=== PATIENT | female | born 1965 | race Hispanic/Latino ===

== ENCOUNTER 2018-09-15 08:53 | Outpatient (CLI) | payer OTHER ==
--- NOTE | 2018-09-15 15:34 | MMO ---
Bilateral MAMMO Bilat Screen DDI+DIMITRY. CLINICAL HISTORY: Patient is 53 years old and is seen for screening. The patient has no family history of breast cancer. The patient has no personal history of cancer. VIEWS: The views performed were: bilateral craniocaudal with tomosynthesis and bilateral mediolateral oblique with tomosynthesis. FILMS COMPARED: The present examination has been compared to prior imaging studies performed at [facility] on 02/11/2016 and 02/27/2017. MAMMOGRAM FINDINGS: There are scattered fibroglandular densities. There is a focal asymmetry seen in the lower-outer region of the right breast. IMPRESSION: FOCAL ASYMMETRY IN THE RIGHT BREAST REQUIRES ADDITIONAL EVALUATION. SPOT COMPRESSION IS RECOMMENDED. AN ULTRASOUND EXAM IS RECOMMENDED IF NEEDED. ADDITIONAL IMAGING. THE RESULTS OF THIS EXAM WERE SENT TO THE PATIENT. ACR BI-RADS Category 0 - Incomplete: Need additional imaging evaluation. [facility] will notify the patient of the need for additional imaging services. MAMMOGRAPHY NOTE: 1. A negative mammogram report should not delay a biopsy if a dominant of clinically suspicious mass is present. 2. Approximately 10% to 15% of breast cancers are not detected by mammography. 3. Adenosis and dense breasts may obscure an underlying neoplasm.
== END 2018-09-15 08:54 | disposition home or self-care (01) ==
LOC: BICMAMMO 08:53
PROVIDERS: ATTEND Family Medicine
DX: Z12.31 Encounter for screening mammogram for malignant neoplasm of breast (principal); N64.89 Other specified disorders of breast
CPT/HCPCS: 77063; 77067

== ENCOUNTER 2019-10-03 08:17 | Outpatient (CLI) | payer OTHER ==
--- NOTE | 2019-10-03 09:02 | MMO ---
Bilateral MAMMO Bilat Diag DDI+DIMITRY. CLINICAL HISTORY: Patient is 54 years old and is seen for diagnostic exam. The patient has no family history of breast cancer. The patient has no personal history of cancer. VIEWS: The views performed were: bilateral craniocaudal with tomosynthesis; bilateral mediolateral oblique with tomosynthesis; and bilateral mediolateral with tomosynthesis. FILMS COMPARED: The present examination has been compared to prior imaging studies performed at [facility] on 02/27/2017, 09/15/2018 and 10/03/2019. This study has been interpreted with the assistance of computer-aided detection. MAMMOGRAM FINDINGS: There are scattered fibroglandular densities. Cluster of cysts seen on ultrasound at 3 oclock corresponding to the asymmetric density. See ultrasound report. In the left breast, there are no suspicious masses, calcifications or areas of architectural distortion. IMPRESSION: FINDING IN THE RIGHT BREAST IS PROBABLY BENIGN. FOLLOW-UP IN 6 MONTHS IS RECOMMENDED. THE RESULTS OF THIS EXAM WERE SENT TO THE PATIENT. ACR BI-RADS Category 3 - Probably benign finding - short interval follow-up suggested. [facility] will notify the patient of the need for additional imaging services. MAMMOGRAPHY NOTE: 1. A negative mammogram report should not delay a biopsy if a dominant of clinically suspicious mass is present. 2. Approximately 10% to 15% of breast cancers are not detected by mammography. 3. Adenosis and dense breasts may obscure an underlying neoplasm. Reported by: IVETT FONTAINE MD Electonically Signed: [id number]
--- NOTE | 2019-10-03 09:31 | ULT ---
ULTRASOUND RIGHT BREAST: INDICATION: Ultrasound right breast performed to assess an area of asymmetric density in the inner right breast. FINDINGS: There is a small cluster of cysts at 3 o'clock with overall measurement of approximately 1.3 cm. Rec ommend followup ultrasound and mammogram in 6 months to confirm stability. IMPRESSION: BIRADS 3, probably benign. Recommend followup right breast mammogram and ultrasound in 6 months.
== END 2019-10-03 08:18 | disposition home or self-care (01) ==
LOC: BICMAMMO 08:17
PROVIDERS: ATTEND Family Medicine
DX: R92.8 Other abnormal and inconclusive findings on diagnostic imaging of breast (principal)
CPT/HCPCS: 77066; G0279

== ENCOUNTER 2020-05-08 12:50 | Outpatient (CLI) | payer OTHER ==
--- NOTE | 2020-05-08 14:26 | MMO ---
Right Breast MAMMO Unilat Diag DDI RT+DIMITRY. CLINICAL HISTORY: Patient is 54 years old and is seen for diagnostic exam. The patient has no family history of breast cancer. The patient has no personal history of cancer. VIEWS: The views performed were: right craniocaudal with tomosynthesis; right mediolateral oblique with tomosynthesis; and right mediolateral with tomosynthesis. FILMS COMPARED: The present examination has been compared to prior imaging studies performed at [facility] on 09/15/2018, 10/03/2019 and 05/08/2020. This study has been interpreted with the assistance of computer-aided detection. MAMMOGRAM FINDINGS: There are scattered fibroglandular densities. A cluster of cysts is again seen in the region of focal asymmetry in the right breast. IMPRESSION: FINDING IN THE RIGHT BREAST IS PROBABLY BENIGN. FOLLOW-UP IN 6 MONTHS IS RECOMMENDED. THE RESULTS OF THIS EXAM WERE SENT TO THE PATIENT. ACR BI-RADS Category 3 - Probably benign finding - short interval follow-up suggested. [facility] will notify the patient of the need for additional imaging services. MAMMOGRAPHY NOTE: 1. A negative mammogram report should not delay a biopsy if a dominant of clinically suspicious mass is present. 2. Approximately 10% to 15% of breast cancers are not detected by mammography. 3. Adenosis and dense breasts may obscure an underlying neoplasm. Reported by: URIAH SHUKLA MD Electonically Signed: [id number]
--- NOTE | 2020-05-08 15:17 | ULT ---
RIGHT BREAST ULTRASOUND: Date: 05/08/2020 HISTORY: Six month follow-up. FINDINGS: Comparison made with ultrasound of 10/03/2019. Correlation made with mammogram of today and 0. Sonographic evaluation of the 3 o'clock position of the right breast redemonstrates a cluster of cyst s measuring about 1.5 cm. IMPRESSION: BI-RADS Category 3 - Probably benign. Follow-up ultrasound along with bilateral screening mammograms is recommended in 6 months. The facility will notify patient of need for additional imaging services. POS: OFF
== END 2020-05-08 12:51 | disposition home or self-care (01) ==
LOC: BICMAMMO 12:50
PROVIDERS: ATTEND Nurse Practitioner Family
DX: R92.8 Other abnormal and inconclusive findings on diagnostic imaging of breast (principal)
CPT/HCPCS: G0279

== ENCOUNTER 2020-08-30 06:33 | Emergency (ER) | payer OTHER ==
[2020-08-30] MEDS ORDERED: Nitroglycerin 50 MG/250 ML BOT 250 ML ONE (06:44)
[2020-08-30] MEDS ORDERED: Lorazepam 2 MG/ML VIAL ONE (06:53)
[2020-08-30 07:06] LABS: Hemoglobin 12.1 g/dL (12.0-16.0); Mean Corpuscular HGB CONC 34.9 g/dL (32.0-36.0); Mean Corpuscular Volume 94.5 fL (78.0-98.0); Mean Platelet Volume 8.3 fL (7.4-10.4); Platelet Count 285 thou/uL (130-400); Red Blood Cell (RBC) Count 3.66 mill/uL (4.20-5.40); White Blood Cell (WBC) Count 15.8 thou/uL (4.8-10.8)
[2020-08-30 07:11] LABS: Actual Bicarbonate (HCO3a) 19.9 mEq/L (22-28); Analyzer IN Cardio ER; Base Excess (BEa) -2.6 mEq/L (-2.0 to +3.0); CO2 Tension 27.8 mmHg (35.0-45.0); Calcium, Ionized (arterial) 1.15 mmol/L (1.12-1.30); Carboxyhemoglobin (COHb) 0.3 gm% (0.0-3.0); Hemoglobin (Hb) 11.8 g/dL (12.0-16.0); O2 Tension (PaO2), arterial 69.7 mmHg (80.0-100.0); Potassium - ABG Lab 3.33 mmol/L (3.70-5.30); pH, Arterial 7.47 (7.35-7.45)
[2020-08-30 07:12] LABS: Puncture Site RRA
[2020-08-30] MEDS ORDERED: Ketamine 50 MG/ML (10ML VIAL) ONE (07:22)
[2020-08-30 07:28] LABS: ALT (SGPT) 17 U/L (8-55); AST (SGOT) 33 U/L (5-34); Alkaline Phosphatase 98 U/L (40-110); Anion Gap 21 mmol/L (10-20); BUN (Urea Nitrogen) 17 mg/dL (9.8-20.1); Bilirubin, Total 1.1 mg/dL (0.2-1.2); Calc. Creatinine Clearance 0 mL/min (70-130); Calcium 9.9 mg/dL (7.8-10.44); Carbon Dioxide 20 mmol/L (22-29); Chloride 97 mmol/L (98-107); Globulin 4.5 g/dL (2.4-3.5); Glucose 143 mg/dL (70-105); Potassium 3.3 mmol/L (3.5-5.1); Protein, Total 8.5 g/dL (6.0-8.3); Sodium 135 mmol/L (136-145)
[2020-08-30] MEDS ORDERED: Azithromycin 500 MG VIAL ONE (07:29)
[2020-08-30] MEDS ORDERED: cefTRIAXone\\ROCEPHIN 2 GM VIAL ONE (07:29)
--- NOTE | 2020-08-30 07:46 | RAD ---
Portable frontal chest radiograph: 08/30/2020 COMPARISON: 09/24/2018 HISTORY: Shortness of breath, difficulty breathing FINDINGS: There is extensive new interstitial and alveolar opacity within the bilateral lung parenchy ma with a perihilar/bibasilar predominance, left greater than right. No pneumothorax is evident. There is no large volume pleural effusion. Heart and mediastinal contours appear grossly unremarkable . IMPRESSION: Extensive bilateral interstitial and alveolar opacity, left greater than right. Findings suggest a nonspecific atypical infectious pneumonitis, such as Covid 19. Aspiration or a degree of pulmonary edema cannot be excluded.
[2020-08-30] MEDS ORDERED: Enoxaparin Sodium 100 MG/ML SYRINGE ONE (07:55)
[2020-08-30 08:02] LABS: Band 16 % (5-11); Lymphocytes 20 % (21-51); MDiff Complete? YES; Monocytes 2 % (0-10); Neutrophil 62 % (42-75); Platelet Morphology Comment Appears Adequate; RBC Morphology Normal
--- NOTE | 2020-08-30 08:14 | PDOC.HHP ---
Hospitalist HPI Respiratory distress History of Present Illness: 55-year-old female with past medical history of hypertension who presented to emergency room with worsening of shortness of breath, patient has symptoms for last 4 days, she was diagnosed with COVID-19 August 26, her symptoms started 2 days prior to testing,, she was feeling low-grade fever, dry cough and increasing shortness of breath, When patient arrived to emergency room she was hypoxic, she was saturating 56% on room air, she was hypotensive with blood pressure 201/110, she was anxious, she was tachycardic and tachypneic, she was not able to provide any history, initially she kept on nonrebreather but subsequently she required BiPAP, patient was also given anxiety medicine and subsequently started on nitro drip for elevated blood pressure, After BiPAP and anxiety medicine patient had improvement in her blood pressure as well as respiratory rate, she had clinical improvement and subsequently we decided to keep this patient in hospital. On admission EKG showed sinus tachycardia with a right bundle branch block pattern, patient also had a chest x-ray which was showing diffuse patchy infiltrate. In the emergency room patient received Lovenox 1 mg/kg empirically, she was also given antibiotics. ED Course: In emergency room patient is given Lovenox 1 mg/kg, Rocephin 2 g, azithromycin 500 mg, ketamine 0.1 mg/kg, lorazepam 1 mg IV push, nitroglycerin drip was also started VITAL SIGNS [facility] Aug 30, 2020 06:35 TRACIE Dodd Jordan BP: 177/105, Pulse: 135, Resp: 40, Temp: 99.1 (Oral), O2 sat: 50 on (Room Air), Time: 08/30/2020 06:35. VITAL SIGNS [facility] Aug 30, 2020 06:57 TRACIE Andujar Cory BP: 167/136, Pulse: 133, Resp: 42, Temp: 99.0 (Axillary), Pain: 0, O2 sat: 99 on (Bipap), Time: 08/30/2020 06:57. VITAL SIGNS [facility] Aug 30, 2020 06:39 TRACIE Andujar Cory BP: 189/147, MAP: 161, Pulse: 144, Resp: 44, O2 sat: 56 on (Room Air), Time: 08/30/2020 06:39. VITAL SIGNS [facility] Aug 30, 2020 06:42 Authement, RN, Yunier BP: 201/110, MAP: 140, Pulse: 133, Resp: 40, Pain: 0, O2 sat: 84 on (Non Rebreather), Time: 08/30/2020 06:42. VITAL SIGNS [facility] Aug 30, 2020 06:45 Authement, RN, Yunier BP: 189/113, MAP: 138, Pulse: 132, Resp: 40, Pain: 0, O2 sat: 83 on (Non Rebreather), Time: 08/30/2020 06:45. VITAL SIGNS [facility] Aug 30, 2020 07:05 Authement, RN, Yunier BP: 163/110, MAP: 127, Pulse: 135, Resp: 54, Pain: 0, O2 sat: 97 on (Bipap), Time: 08/30/2020 07:05. VITAL SIGNS [facility] Aug 30, 2020 07:21 Authement, RN, Yunier BP: 153/102, MAP: 119, Pulse: 128, Resp: 51, O2 sat: 95 on (Bipap), Time: 08/30/2020 07:21 Allergies/Adverse Reactions: Allergy/AdvReac Type Severity Reaction Status Date / Time Penicillins Allergy Verified 08/30/20 08:13 Comments: CURRENT HOME MEDICATIONS albuterol sulfate inhalation VIAL, NEBULIZER (EA) : Strength - 2.5 mg/0.5 mL : INHALATION Patient Dose: 1 units Nebulize every 4 hours prn. aspirin oral TABLET : Strength - 325 mg : ORAL Patient Dose: 1 tab(s) Oral once a day. azithromycin oral TABLET : Strength - 250 mg : ORAL Patient Dose: 1 tab(s) Oral once a day. cyclobenzaprine TABLET : Strength - 10 mg : ORAL Patient Dose: 10 mg Oral 3 times a day. losartan TABLET : Strength - 100 mg : ORAL Patient Dose: 100 mg Oral once a day. meloxicam TABLET : Strength - 15 mg : ORAL Patient Dose: 1 tab(s) Oral once a day. Past History: Past medical history Hypertension Past surgical history Tubal ligation Past psychiatric history Reviewed and negative Social history Patient is , lives at home, no history of tobacco alcohol or illicit drug abuse Family history No strong family history of premature coronary artery disease stroke or cancer Hospitalist HPI ROS Constitutional: reports: fever, weakness, malaise. denies: chills, sweats, other Eyes: denies: pain, vision change, conjunctivae inflammation, eyelid inflammation, redness, other ENT: denies: ear pain, ear discharge, nose pain, nose discharge, nose con gestion, mouth pain, mouth swelling, throat pain, throat swelling, other Respiratory: reports: cough, shortness of breath, SOB with excertion. denies: dry, hemoptysis, pleuritic pain, sputum, wheezing, other Cardiovascular: denies: chest pain, palpitations, orthopnea, paroxysmal noc. dyspnea, edema, light headedness, other Gastrointestinal: denies: nausea, vomiting, abdominal pain, diarrhea, constipation, melena, hematochezia, other Genitourinary: denies: dysuria, frequency, incontinence, hematuria, retention, other Musculoskeletal: denies: neck pain, shoulder pain, arm pain, back pain, hand pain, leg pain, foot pain, other Skin: denies: rash, lesions, [place], bruising, other Hospitalist Exam General Appearance: NAD General - other findings: Respiratory distress Eye: PERRL, anicteric sclera ENT: normocephalic atraumatic, no oropharyngeal lesions Neck: supple, symmetric, no JVD, no thyromegaly Heart: RRR, no murmur, no gallops, no rubs Heart - other findings: Tachycardia Respiratory: tachypneic Respiratory - other findings: Bilateral reduced air entry with tachypnea, few basal rales Gastrointestinal: soft, non-tender, non-distended, normal bowel sounds Extremities: no cyanosis, no clubbing, no edema Skin: normal turgor, no lesions Neurological: no focal deficits Musculoskeletal: normal tone, normal strength Psychiatric: normal affect, normal behavior Hospitalist Results Result Diagrams: 08/30/20 06:55 08/30/20 06:55 Lab results: Laboratory Last Values WBC 15.8 thou/uL (4.8-10.8) H 08/30/20 06:55 RBC 3.66 mill/uL (4.20-5.40) L 08/30/20 06:55 Hgb 12.1 g/dL (12.0-16.0) 08/30/20 06:55 Hct 34.6 % (36.0-47.0) L 08/30/20 06:55 MCV 94.5 fL (78.0-98.0) 08/30/20 06:55 MCH 33.0 pg (27.0-31.0) H 08/30/20 06:55 MCHC 34.9 g/dL (32.0-36.0) 08/30/20 06:55 RDW 17.0 % (11.5-14.5) H 08/30/20 06:55 Plt Count 285 thou/uL (130-400) 08/30/20 06:55 MPV 8.3 fL (7.4-10.4) 08/30/20 06:55 Neutrophils % (Manual) 62 % (42-75) 08/30/20 06:55 Band Neuts % (Manual) 16 % (5-11) H 08/30/20 06:55 Lymphocytes % (Manual) 20 % (21-51) L 08/30/20 06:55 Monocytes % (Manual) 2 % (0-10) 08/30/20 06:55 Lymphocytes # Not Reportable 08/30/20 06:55 Plt Morphology Comment Appears Adequate 08/30/20 06:55 RBC Morph Comment Normal 08/30/20 06:55 Specimen Type ARTERIAL 08/30/20 07:07 Puncture Site RRA 08/30/20 07:07 Bicarbonate Actual 19.9 mEq/L (22-28) L 08/30/20 07:07 ABG pH 7.47 (7.35-7.45) H 08/30/20 07:07 ABG pCO2 27.8 mmHg (35.0-45.0) L 08/30/20 07:07 ABG pO2 69.7 mmHg (80.0-100.0) L 08/30/20 07:07 ABG O2 Sat (Measured) 93.8 % (94.0-98.0) L 08/30/20 07:07 ABG O2 Content 15.5 vol% (18.0-21.0) L 08/30/20 07:07 ABG Base Excess -2.6 mEq/L (-2.0 to +3.0) L 08/30/20 07:07 ABG Hematocrit 35.0 % (36.0-47.0) L 08/30/20 07:07 ABG Hemoglobin 11.8 g/dL (12.0-16.0) L 08/30/20 07:07 ABG Oxyhemoglobin 93.0 % (94.0-98.0) L 08/30/20 07:07 ABG Carboxyhemoglobin 0.3 gm% (0.0-3.0) 08/30/20 07:07 ABG Methemoglobin 0.60 gm% (0.04-1.52) 08/30/20 07:07 ABG Deoxyhemoglobin 6.1 % (0.0-2.9) H 08/30/20 07:07 A-a O2 Gradient 323.350 mmHg (0-20) H 08/30/20 07:07 Sodium 134 mmol/L (135-148) L 08/30/20 07:07 Potassium 3.33 mmol/L (3.70-5.30) L 08/30/20 07:07 Chloride 100 mmol/L (98-106) 08/30/20 07:07 Ionized Calcium 1.15 mmol/L (1.12-1.30) 08/30/20 07:07 Mode of Support BIPAP 08/30/20 07:07 Inspired O2 60 % 08/30/20 07:07 Pressure Support 12 cmH2O 08/30/20 07:07 PEEP or CPAP 6.0 cmH2O 08/30/20 07:07 Sodium 135 mmol/L (136-145) L 08/30/20 06:55 Potassium 3.3 mmol/L (3.5-5.1) L 08/30/20 06:55 Chloride 97 mmol/L (98-107) L 08/30/20 06:55 Carbon Dioxide 20 mmol/L (22-29) L 08/30/20 06:55 Anion Gap 21 mmol/L (10-20) H 08/30/20 06:55 BUN 17 mg/dL (9.8-20.1) 08/30/20 06:55 Creatinine 1.03 mg/dL (0.6-1.1) 08/30/20 06:55 Estimated GFR (MDRD) 56 08/30/20 06:55 Glucose 143 mg/dL (70-105) H 08/30/20 06:55 Lactic Acid 3.6 mmol/L (0.5-2.2) H 08/30/20 06:55 Calcium 9.9 mg/dL (7.8-10.44) 08/30/20 06:55 Total Bilirubin 1.1 mg/dL (0.2-1.2) 08/30/20 06:55 AST 33 U/L (5-34) 08/30/20 06:55 ALT 17 U/L (8-55) 08/30/20 06:55 Alkaline Phosphatase 98 U/L (40-110) 08/30/20 06:55 Troponin I 0.023 ng/mL (< 0.028) 08/30/20 06:55 B-Natriuretic Peptide 40.6 pg/mL (0-100) 08/30/20 06:55 Serum Total Protein 8.5 g/dL (6.0-8.3) H 08/30/20 06:55 Albumin 4.0 g/dL (3.5-5.0) 08/30/20 06:55 Globulin 4.5 g/dL (2.4-3.5) H 08/30/20 06:55 Albumin/Globulin Ratio 0.9 g/dL (1.2-2.2) L 08/30/20 06:55 Additional comment: 12 lead EKG shows, sinus tachycardia, Rate (beats per minute): 129, with no ectopics, Conduction with, incomplete right bundle branch block, ST segments normal, T waves normal, [place] normal, Clinical impression:, non-specific EKG. Chest x-ray Status: image reviewed by me Additional Comments: Diffuse patchy infiltrates consistent with Covid pneumonia. Hospitalist H&P A/P (1) Acute respiratory failure due to COVID-19 Code(s): U07.1 - COVID-19; J96.00 - ACUTE RESPIRATORY FAILURE, UNSP W HYPOXIA OR HYPERCAPNIA Status: Acute (2) Pneumonia due to COVID-19 virus Code(s): U07.1 - COVID-19; J12.82 - PNEUMONIA DUE TO CORONAVIRUS DISEASE 2019 Status: Acute (3) Hypertensive urgency Code(s): I16.0 - HYPERTENSIVE URGENCY Status: Acute Plan: Admission to CCU Close monitoring for any further deterioration Patient will need BiPAP Pulmonology will be consulted Ask pharmacy to evaluate for remdesivir Continue dexamethasone 6 mg IV daily for 10 days Continue empiric Rocephin 1 g every 24 hours for 5 days and azithromycin 500 mg IV daily for 3 days Protonix 40 mg p.o. daily Vitamin supplementation including vitamin C, zinc sulfate, vitamin D3 and vitamin C Symptomatic treatment As needed medication for elevated blood pressure We will monitor inflammatory markers Plan of care updated to patient's on phone DVT prophylaxis Lovenox 40 mg subcu twice daily GI prophylaxis Protonix 40 mg p.o. daily CODE STATUS patient is full code Disposition plan based on clinical course
[2020-08-30 09:54] LABS: Lactic Acid 1.2 mmol/L (0.5-2.2)
[2020-08-30] MEDS ORDERED: Ondansetron ODT 4 MG TAB PO PRN (09:54)
[2020-08-30] MEDS ORDERED: Ondansetron PF 4 MG/2 ML Vial IVP PRN (09:54)
[2020-08-30] MEDS ORDERED: Zolpidem Tartrate 5 MG TAB PO PRN (09:54)
[2020-08-30] MEDS ORDERED: HYDROcodone/Acetaminophen 5/325 mg Tablet PO PRN (09:54)
[2020-08-30] MEDS ORDERED: Loratadine 10 MG TAB PO PRN (09:54)
[2020-08-30] MEDS ORDERED: Guaifenesin DM 100-10/5 ML UDCUP PO PRN (09:54)
[2020-08-30] MEDS ORDERED: Potassium Chloride 20 MEQ TAB PO SCH (09:54)
[2020-08-30] MEDS ORDERED: Senokot S 8.6-50 MG TAB PO PRN (09:54)
[2020-08-30] MEDS ORDERED: Cepastat Lozenges 1 LOZ PO PRN (09:54)
[2020-08-30] MEDS ORDERED: Lorazepam 0.5 MG TAB PO PRN (09:54)
[2020-08-30] MEDS ORDERED: hydrALAZINE 20 MG/ML VIAL SLOW IVP PRN (09:54)
[2020-08-30] MEDS ORDERED: Loperamide HCl 2 MG CAP PO PRN (09:54)
[2020-08-30] MEDS ORDERED: Labetalol HCl 100 MG/20 ML VIAL SLOW IVP PRN (09:54)
[2020-08-30] MEDS ORDERED: Calcium Carbonate 500 MG ChewTAB PO PRN ×2 (09:54)
[2020-08-30] MEDS ORDERED: Sodium Chloride 0.65% Nasal 44 ML BOT EA NARE PRN (09:54)
[2020-08-30] MEDS ORDERED: Benzonatate 100 MG CAP PO PRN (09:54)
[2020-08-30] MEDS ORDERED: Bisacodyl 10 MG SUPP PR PRN (09:54)
[2020-08-30] MEDS ORDERED: Acetaminophen 325 MG TAB PO PRN (09:54)
[2020-08-30] MEDS ORDERED: REMDESIVIR (EUA) 200 MG in Sodium Chloride 0.9% 250 ML 210 ML IV SCH (10:00)
[2020-08-30] MEDS ORDERED: Albuterol 200 PUFF (6.7GM INHALER) INH PRN (10:24)
[2020-08-30] MEDS ORDERED: Vitamin E 400 UNITS CAP PO SCH (10:30)
[2020-08-30] MEDS ORDERED: Cholecalciferol 1,000 UNITS (25 MCG) TAB PO SCH (10:30)
[2020-08-30] MEDS ORDERED: Ascorbic Acid 500 mg Chewable Tablet PO SCH (10:30)
[2020-08-30] MEDS ORDERED: Dexamethasone 4 mg/ml Vial SLOW IVP SCH (11:00)
[2020-08-30 11:14] LABS: Phosphorus 2.7 mg/dL (2.3-4.7)
[2020-08-30 12:11] LABS: SARS-CoV-2 NAA Rapid Test DETECTED (NotDetected)
--- NOTE | 2020-08-30 12:29 | PDOC.DS.DS ---
Provider Date of Admission: August 30, 2020 Date of Discharge: 08/30/20 Primary Care Physician: Ileana Gardner, [employer] MACHINE OPERATOR Course Hospital Course: Please see my HPI for further detail, patient is admitted for acute respiratory failure with hypoxia secondary to COVID-19, her symptoms started 7 days ago, she is tested positive for Covid 4 days ago, she was hypertensive and required nitroglycerin drip, she required BiPAP, there was no bed available in our hospital for ICU care so we transported this patient to [facility], Resuscitation Status: 08/30/20 08:04 Resuscitation Status Routine Resuscitation Status: FULL: Full Resuscitation Lab Results: 08/30/20 06:55 08/30/20 06:55 Abnormal Lab Results - Last 48 hrs 08/30/20 06:55: Sodium 135 L, Potassium 3.3 L, Chloride 97 L, Carbon Dioxide 20 L, Anion Gap 21 H, Serum Total Protein 8.5 H, Globulin 4.5 H, Albumin/Globulin Ratio 0.9 L 08/30/20 06:55: WBC 15.8 H, RBC 3.66 L, Hct 34.6 L, MCH 33.0 H, RDW 17.0 H, Band Neuts % (Manual) 16 H, Lymphocytes % (Manual) 20 L 08/30/20 06:55: Lactic Acid 3.6 H 08/30/20 06:56: D-Dimer 2.29 H 08/30/20 07:07: Bicarbonate Actual 19.9 L, ABG pH 7.47 H, ABG pCO2 27.8 L, ABG pO2 69.7 L, ABG O2 Sat (Measured) 93.8 L, ABG O2 Content 15.5 L, ABG Base Excess -2.6 L, ABG Hematocrit 35.0 L, ABG Hemoglobin 11.8 L, ABG Oxyhemoglobin 93.0 L, ABG Deoxyhemoglobin 6.1 H, A-a O2 Gradient 323.350 H, Sodium 134 L, Potassium 3.33 L 08/30/20 09:27: C-Reactive Protein 44.92 H 08/30/20 10:10: SARS-CoV-2 Rap RNA(RT-PCR) DETECTED A* Physical Exam: The patient was seen and examined on the day of discharge. Please see my HPI for more detail, Problem (1) Acute respiratory failure due to COVID-19 Code(s): U07.1 - COVID-19; J96.00 - ACUTE RESPIRATORY FAILURE, UNSP W HYPOXIA OR HYPERCAPNIA Status: Acute (2) Pneumonia due to COVID-19 virus Code(s): U07.1 - COVID-19; J12.82 - PNEUMONIA DUE TO CORONAVIRUS DISEASE 2018 Status: Acute (3) Hypertensive urgency Code(s): I16.0 - HYPERTENSIVE URGENCY Status: Acute Plan Allergies: Penicillins Allergy (Verified 08/30/20 08:13) Activity:: Activity as Tolerated Nourishment:: Regular Diet Therapies:: Not Applicable Equipment/Supplies:: Not Applicable IV Therapy:: Not Applicable Referrals: Ileana Gardner FNP [Primary Care Provider] - Disposition: OTHER HOSPITAL INPT Quality CORE MEASURES:: N/A
[2020-08-30] MEDS ORDERED: Mometasone 200 MCG/Formoterol 5 MCG 120 PUFF INHALER INH SCH (18:30)
[2020-08-30] MEDS ORDERED: Enoxaparin Sodium 40 MG/0.4 ML SYRINGE SC SCH (21:00)
[2020-08-31] MEDS ORDERED: Azithromycin 500 MG in Sodium Chloride 0.9% 250 ML 250 ML IVPB SCH (08:00)
[2020-08-31] MEDS ORDERED: cefTRIAXone\\ROCEPHIN 1 GM in Sodium Chloride 0.9% 100 ML IVPB SCH (08:00)
[2020-08-31] MEDS ORDERED: Vitamin E 400 UNITS CAP PO SCH (09:00)
[2020-08-31] MEDS ORDERED: Zinc Sulfate 220 MG CAP PO SCH (09:00)
[2020-08-31] MEDS ORDERED: Cholecalciferol 1,000 UNITS (25 MCG) TAB PO SCH (09:00)
[2020-08-31] MEDS ORDERED: Ascorbic Acid 500 mg Chewable Tablet PO SCH (09:00)
[2020-08-31] MEDS ORDERED: REMDESIVIR (EUA) 100 MG in Sodium Chloride 0.9% 250 ML 230 ML IV SCH (10:00)
== END 2020-08-30 11:03 | disposition short-term general hospital (02) ==
LOC: ERS 06:33
DX: U07.1 COVID-19 (principal); J12.82 Pneumonia due to coronavirus disease 2019; I16.0 Hypertensive urgency; J96.91 Respiratory failure, unspecified with hypoxia; I10 Essential (primary) hypertension; Z79.82 Long term (current) use of aspirin; Z79.899 Other long term (current) drug therapy
CPT/HCPCS: 0240U; 36415; 36600; 71045; 80053; 82728; 82805; 83605; 83735; 83880; 84100; 84484; 85025; 85379; 86140; 87040; 93005; 94660; 94760; 96365; 96367; 96372; 96375; J0456; J0696; J1650; J2060

== ENCOUNTER 2021-04-11 08:06 | Outpatient (CLI) | payer OTHER | END 2021-04-11 08:07 | disposition home or self-care (01) | LOC: BICMAMMO 08:06 | PROVIDERS: ATTEND Nurse Practitioner Family | DX: R92.8 Other abnormal and inconclusive findings on diagnostic imaging of breast (principal) | CPT/HCPCS: 77066; G0279 ==

== ENCOUNTER 2021-12-12 14:19 | Outpatient (CLI) | payer BC | END 2021-12-12 14:20 | disposition home or self-care (01) | LOC: BICULT 14:19 | PROVIDERS: ATTEND Internal Medicine Nephrology | DX: N18.30 Chronic kidney disease, stage 3 unspecified (principal) | CPT/HCPCS: 76770 ==

== ENCOUNTER 2022-02-13 14:20 | Emergency (ER) | payer BC ==
[2022-02-13] MEDS ORDERED: Iopamidol-370 76% 500 ML 1 ML ONE (14:34)
[2022-02-13 15:47] LABS: #Eosinphils 0.1 thou/uL (0.0-0.7); #Lymphocytes 2.4 thou/uL (1.20-3.40); #Monocytes 1.3 thou/uL (0.11-0.59); #Neutrophils 4.9 thou/uL (1.40-6.50); %Eosinophils 1.4 % (0.0-10.0); %Lymphocytes 27.8 % (21.0-51.0); %Monocytes 14.5 % (0.0-10.0); %Neutrophils 56.3 % (42.0-75.0); Hemoglobin 12.1 g/dL (12.0-16.0); Mean Corpuscular HGB CONC 32.4 g/dL (32.0-36.0); Mean Corpuscular Hemoglobin 30.5 pg (27.0-31.0); Mean Platelet Volume 8.5 fL (7.4-10.4); Platelet Count 330 thou/uL (130-400); RBC Distribution Width 19.6 % (11.5-14.5); Red Blood Cell (RBC) Count 3.96 mill/uL (4.20-5.40); White Blood Cell (WBC) Count 8.6 thou/uL (4.8-10.8)
[2022-02-13 16:09] LABS: ALT (SGPT) 11 U/L (8-55); AST (SGOT) 18 U/L (5-34); Albumin 4.1 g/dL (3.5-5.0); Alkaline Phosphatase 107 U/L (40-110); Anion Gap 12 mmol/L (10-20); BUN (Urea Nitrogen) 19 mg/dL (9.8-20.1); Bilirubin, Total 0.7 mg/dL (0.2-1.2); Calc. Creatinine Clearance 0 mL/min (70-130); Calcium 9.6 mg/dL (7.8-10.44); Carbon Dioxide 27 mmol/L (22-29); Chloride 105 mmol/L (98-107); Estimated GFR 81; Globulin 3.8 g/dL (2.4-3.5); Glucose 95 mg/dL (70-105); Lipase 27 U/L (8-78); Potassium 4.2 mmol/L (3.5-5.1); Protein, Total 7.9 g/dL (6.0-8.3); Sodium 140 mmol/L (136-145)
[2022-02-13 16:15] LABS: Bilirubin Negative (Negative); Blood, Urine Negative (Negative); Clarity Clear (Clear); Glucose, Urine (Dipstick) Normal (Negative); Ketone, Urine Negative (Negative); Leukocyte Negative Leu/uL (Negative); Nitrite Negative (Negative); Protein, Urine (Dipstick) Negative (Neg-Trace); Specific Gravity, Urine 1.022 (1.002-1.036); Urobilinogen Normal mg/dL (Less than 2); pH, Urine 5.5 (5.0-9.0)
[2022-02-13] MEDS ORDERED: diphenhydrAMINE 50 MG/ML VIAL ONE (17:18)
[2022-02-13] MEDS ORDERED: Metoclopramide HCl 10 MG/2 ML VIAL ONE (17:19)
[2022-02-13] MEDS ORDERED: Ondansetron PF 4 MG/2 ML Vial ONE (17:19)
== END 2022-02-13 19:11 | disposition home or self-care (01) ==
LOC: ERS 14:20
DX: J18.9 Pneumonia, unspecified organism (principal); U09.9 Post COVID-19 condition, unspecified; R51.9 Headache, unspecified; R42 Dizziness and giddiness; R29.700 NIHSS score 0; I12.9 Hypertensive chronic kidney disease with stage 1 through stage 4 chronic kidney disease, or unspecified chronic kidney disease; N18.2 Chronic kidney disease, stage 2 (mild); Z79.82 Long term (current) use of aspirin; Z79.899 Other long term (current) drug therapy
CPT/HCPCS: 36415; 71275; 80053; 81003; 83690; 84484; 85025; 93005; 96365; 96366; 96375; J1200; J2405; J2765; Q9967

== ENCOUNTER 2022-04-15 08:48 | Outpatient (CLI) | payer BC | END 2022-04-15 08:49 | disposition home or self-care (01) | LOC: BICMAMMO 08:48 | PROVIDERS: ATTEND Nurse Practitioner Family | DX: Z12.31 Encounter for screening mammogram for malignant neoplasm of breast (principal); Z13.820 Encounter for screening for osteoporosis; E83.9 Disorder of mineral metabolism, unspecified; M85.852 Other specified disorders of bone density and structure, left thigh | CPT/HCPCS: 77063; 77067; 77080 ==